=== PATIENT | male | born 1965 | race Two or more races ===

== ENCOUNTER → 2024-06-29 | Day surgery (SDC) | payer OTHER ==
[~2024-06-29] VITALS: Ht 182.9 cm; Wt 108.9 kg
[~2024-06-29] MED LIST: DexAMETHasone SOD PHOS 10MG/1ML VIAL INJ ONE; FINA5TAB4 PO; FLUMAZENIL 0.1 MG/ML INJ 10ML MDV IV PRN; GLYCOPYRROLATE 0.2 MG/ML 1ML VIAL ONE; HYDROmorphone HCL 2 MG/ML VL/or syr IV PRN; IOHEXOL 300 MG/ML 100ML BOTTLE IJ ONE; KETAMINE 50mg/ML 1ml syringe ONE; KETOROLAC TROMETH 30 MG/ML 1ML VIAL ONE; LIDOCAINE 2% (LOCAL ANESTH.) PF 5ml SDV ONE; NALOXONE HCL 0.4 MG/ML VIAL IV PRN; ONDANSETRON HCL 4 MG/2 ML VIAL IV PRN; ONDANSETRON HCL 4 MG/2 ML VIAL ONE; PROPOFOL 10 MG/ML 20 ML IV ONE; ROCURONIUM 10MG/ML 10ML VIAL IV ONE; SUGAMMADEX 200mg/2ml Vial (100MG/ML) IV ONE; TAMS-35 PO; cefTRIAXone SOD 1,000 MG VL ONE; ePHEDrine SULFATE 50 MG/ML AMP IV PRN; fentaNYL CITRATE 100 MCG/2 ML VL IV PRN; fentaNYL CITRATE 100 MCG/2 ML VL ONE; hydrALAZINE HCL 20 MG/ML VL IV ONE; oxyCODONE HCL 5MG TAB PO PRN
[2024-06-29 11:42] VITALS: TEMP 97.8; O2SAT 100
--- NOTE | 2024-06-29 11:54 | DVHDS2 ---
New Physician D'charge PN Admitting Diagnosis Admitting Diagnosis Left renal calculus Discharge Diagnosis Same Operations or Procedures Left pyeloscopy with CVAC laser lithotripsy Reason(s) For Hospitalization Surgery Treatment Plan Discharge Condition of Discharge Good Disposition Home Discharge Instructions Diet: Regular Activity: Light activity Activity comment: As tolerated Medications: Given Follow Up Care Follow Up/Referral: Two weeks follow up with [facility] Discharge Statement: "Patient was advised to return to the ER or call 911 if any headaches, dizziness, shortness of breath, chest pain, abdominal pain, bleeding, fevers, or worsening of medical condition. Patient was counseled about treatment plan, medications, possible side effects, patientverbalized understanding. All questions were answered to the best of my ability. This discharge took greater then 30 minutes in planning, reviewing documentation, counseling the patient, and discussing with other team members." JANE MARTINEZ MD Jun 29, 2024 11:54
[2024-06-29] MEDS: MANNITOL FTV 25% 12.5 GM/50 ML 50 ML IV ONE (12:40)
[2024-06-29] MEDS: hydrALAZINE HCL 20 MG/ML VL IV PRN (13:18)
--- NOTE | 2024-06-29 13:31 | DVH ---
C-ARM FLUOROSCOPY: PROCEDURE: Left ureteroscopy FLUOROSCOPY TIME: 31.1 seconds DAP: 8.95 mgy FINDINGS: Spot intraoperative C arm radiographs demonstrating left ureteroscopy/lithotripsy. IMPRESSION: Please refer to surgical report for detailed findings.
[2024-06-29 14:43] VITALS: BP 152/90; PULSE 81; RESP 14; O2SAT 100
== END | disposition home or self-care (01) ==
LOC: SUR 07:59
PROVIDERS: ATTEND Urology
DX: N20.2 Calculus of kidney with calculus of ureter (principal); N40.0 Benign prostatic hyperplasia without lower urinary tract symptoms; F17.290 Nicotine dependence, other tobacco product, uncomplicated; E66.01 Morbid (severe) obesity due to excess calories
CPT/HCPCS: 52353; 74018; 82360; 88300; J0360; J0696; J1100; J1885; J2003; J2150; J2405; J2704; Q9967